=== PATIENT | female | born 1985 | race Hispanic/Latino ===

== ENCOUNTER 2023-01-15 06:07 | Emergency (ER) | payer OTHER ==
[~2023-01-15] VITALS: Ht 182.9 cm; Wt 95.4 kg
[2023-01-15] MEDS ORDERED: ACETAMINOPHEN 500 MG TABLET PO ONE (06:30)
[2023-01-15] MEDS ORDERED: FAMOTIDINE 20MG VIAL IV ONE (07:00)
[2023-01-15] MEDS ORDERED: KETOROLAC 30MG VIAL (30MG/ML) IVP ONE (07:00)
[2023-01-15] MEDS ORDERED: LACTATED RINGERS 1000ML 1,000 ML IV ONE (07:00)
[2023-01-15] MEDS ORDERED: ALBUTEROL 0.083% 2.5 MG/3 ML INH IH ONE (07:00)
[2023-01-15] MEDS ORDERED: DEXAMETHASONE SOD PHOSPHATE 4 MG/ML 1ML VIAL IV ONE (07:00)
[2023-01-15] MEDS ORDERED: IBUP-2070 PO (09:44)
[2023-01-15] MEDS ORDERED: D-ME118S47 PO (09:44)
[2023-01-15 09:56] VITALS: BP 106/75
== END 2023-01-15 09:57 | disposition home or self-care (01) ==
LOC: EDH 06:07
DX: J06.9 Acute upper respiratory infection, unspecified (principal); Z20.822 Contact with and (suspected) exposure to COVID-19; Z98.890 Other specified postprocedural states
CPT/HCPCS: 99285; 96374; 71045; 96375; 87635; 96361; 84703; 87880; 87804 ×2; 36415; 94640; J1100; C9803; J7120; J3490; J1885; 96365

== ENCOUNTER 2023-01-24 15:28 | Emergency (ER) | payer OTHER ==
[~2023-01-24] VITALS: Ht 182.9 cm; Wt 90.7 kg
[~2023-01-24 15:28] MED LIST: D-ME118S47 PO; IBUP-2070 PO
[2023-01-24 15:30] VITALS: BP 131/78
[2023-01-24 15:59] LABS: APPEARANCE,URINE CLEAR (CLEAR); BILIRUBIN,URINE NEGATIVE (NEGATIVE); COLOR,URINE LIGHT-YELLOW (YELLOW); GLUCOSE, URINE (UA) NEGATIVE (NEGATIVE); KETONES,URINE NEGATIVE (NEGATIVE); LEUKOCYTE ESTERASE ,URINE NEGATIVE Leu/uL (NEGATIVE); NITRATE,URINE NEGATIVE (NEGATIVE); OCCULT BLOOD,URINE NEGATIVE (NEGATIVE); PH,URINE 6.5 (5.0-8.0); PROTEIN,URINE NEGATIVE (NEGATIVE); UROBILINOGEN,URINE 0.2 mg/dL (0.2-1.0)
[2023-01-24 16:03] LABS: HCG,QUALITATIVE URINE NEGATIVE (NEGATIVE)
[2023-01-24 16:05] LABS: BACTERIA,URINE FEW /HPF (None Seen); MUCUS,URINE RARE LPF (None Seen); RBC,URINE 0-1 /HPF (0-1); SQUAMOUS EPITHELIAL CELL,UR FEW /HPF (0-2)
[2023-01-24 16:20] LABS: BASOPHILS % (AUTO) 0.2 % (0.0-5.0); EOSINOPHILS % (AUTO) 0.3 % (0.0-8.0); HEMATOCRIT 41.3 % (36-48); LYMPHOCYTES % (AUTO) 38.7 % (21.0-51.0); MEAN CORPUSCULAR HEMOGLOBIN 29.8 pg (27.0-33.0); MEAN CORPUSCULAR HGB CONC 32.9 g/dL (32.0-36.0); MEAN CORPUSCULAR VOLUME 90.6 fL (79-99); MONOCYTES % (AUTO) 4.9 % (3.0-13.0); NEUTROPHILS % (AUTO) 55.6 % (40.0-77.0); PLATELET COUNT (AUTO) 239 K/uL (130-400); RED BLOOD CELL COUNT(AUTO) 4.56 MIL/uL (4.00-5.50); RED CELL DISTRIBUTION WIDTH 12.3 % (11.0-15.5); WHITE BLOOD COUNT (AUTO) 6.1 K/uL (4.8-10.8)
[2023-01-24 16:34] LABS: CREATININE 0.8 mg/dL (0.5-1.5); POTASSIUM 3.4 mmol/L (3.5-5.1)
[2023-01-24 16:39] LABS: ALBUMIN 3.8 g/dL (3.5-5.0); TOTAL PROTEIN, SERUM 7.6 g/dL (6.0-8.3)
[2023-01-24] MEDS ORDERED: POTASSIUM BICARB/CIT AC 25 MEQ TABLET.EFF PO ONE (17:30)
[2023-01-24] MEDS ORDERED: ONDANSETRON 4MG INJ IVP ONE (18:00)
[2023-01-24] MEDS ORDERED: CIPR7.5D OT (18:42)
[2023-01-24] MEDS ORDERED: BENZ200C53 PO (18:45)
[2023-01-24] MEDS ORDERED: KETOROLAC 30MG VIAL (30MG/ML) IM ONE (19:00)
[2023-01-24] MEDS: CIPROFLOXACIN HCL 0.2%/HYDROCORT 1% 10 ML OTIC SUSP OTIC SCH ×2 (19:21→19:36)
[2023-01-24] MEDS ORDERED: ONDANSETRON ODT 4MG TAB ONE (19:24)
== END 2023-01-24 19:36 | disposition home or self-care (01) ==
LOC: EDH 15:28
DX: J06.9 Acute upper respiratory infection, unspecified (principal); R05.9 Cough, unspecified; H61.22 Impacted cerumen, left ear; Z20.822 Contact with and (suspected) exposure to COVID-19; Z79.899 Other long term (current) drug therapy; Z98.890 Other specified postprocedural states
CPT/HCPCS: 99284; 96374; 87635; 84484; 80053; 85025; 87804 ×2; 81001; 81025; 36415; 93005; 96372; C9803; J1885